=== PATIENT | male | born 1955 | race Caucasian/White ===

== ENCOUNTER → 2018-03-04 | Emergency (ER) | payer MEDICAID, SELFPAY ==
[~2018-03-04] MED LIST: Iopamidol 370 76% 100 ML VIAL ONE; Levofloxacin 500 mg/D5W 100 ml Premix Bag ONE; Morphine 4 MG/ML VIAL ONE; Pantoprazole 40 MG VIAL ONE; Sodium Chloride 0.9% 1,000 ML BAG ONE; Sodium Chloride 0.9% 100 ML BAG ONE; metroNIDAZOLE 500 MG/100 ML BAG ONE
[2018-03-04 12:48] LABS: #Basophils 0.2 thou/uL (0.0-0.2); #Eosinphils 0.2 thou/uL (0.0-0.7); #Lymphocytes 1.7 thou/uL (1.20-3.40); #Monocytes 1.2 thou/uL (0.11-0.59); %Basophils 1.3 % (0.0-1.0); %Eosinophils 1.9 % (0.0-10.0); %Monocytes 9.6 % (0.0-10.0); %Neutrophils 73.2 % (42.0-75.0); Hemoglobin 11.9 g/dL (14.0-18.0); Mean Corpuscular HGB CONC 32.3 g/dL (32.0-36.0); Mean Corpuscular Hemoglobin 25.6 pg (27.0-31.0); Mean Corpuscular Volume 79.5 fL (78.0-98.0); Mean Platelet Volume 6.8 fL (7.4-10.4); Platelet Count 445 thou/uL (130-400); RBC Distribution Width 12.6 % (11.5-14.5); Red Blood Cell (RBC) Count 4.63 mill/uL (4.70-6.10); White Blood Cell (WBC) Count 12.3 thou/uL (4.8-10.8)
[2018-03-04 13:03] LABS: ALT (SGPT) 8 U/L (8-55); AST (SGOT) 21 U/L (5-34); Albumin 3.7 g/dL (3.4-4.8); Alkaline Phosphatase 75 U/L (40-150); Anion Gap 15 mmol/L (10-20); BUN (Urea Nitrogen) 12 mg/dL (8.4-25.7); Bilirubin, Total 0.5 mg/dL (0.2-1.2); CK (CPK) 26 U/L (30-200); Calc. Creatinine Clearance 0 mL/min (70-130); Carbon Dioxide 24 mmol/L (23-31); Chloride 96 mmol/L (98-107); Estimated GFR-MDRD Greater than 90; Globulin 4.6 g/dL (2.4-3.5); Glucose 99 mg/dL (80-115); Lipase 9 U/L (8-78); Potassium 4.3 mmol/L (3.5-5.1); Protein, Total 8.3 g/dL (5.8-8.1); Sodium 131 mmol/L (136-145)
--- NOTE | 2018-03-04 13:15 | RAD ---
CHEST ONE VIEW: HISTORY: Cough. COMPARISON: 09/18/2017 FINDINGS: Hazy opacity in the lung base, likely due to pleural effusion. Limited evaluation of the left and ri ght hemidiaphragm. Normal cardiac silhouette. The pulmonary vessels are within normal limits. Adeq uate aeration of the upper lungs. No pneumothorax. IMPRESSION: Hazy opacity in the lung bases suggesting bilateral pleural effusion. POS: [facility]
--- NOTE | 2018-03-04 15:02 | CT ---
ABDOMEN CT WITH COTNRAST PELVIC CT WITH CONTRAST: COMPARISON: 01/30/2018. HISTORY: Esophageal cancer. Hepatitis C. Pulmonary disease. Periumbilical pain, x 2 weeks. Nausea and vomi ting. TECHNIQUE: An abdomen and pelvic CT are performed with IV contrast. Enteric contrast is not administered. Mary Grace nal reformatted images are submitted for interpretation. FINDINGS: CT ABDOMEN: There is evidence of a gastric pull-through. There is simple fluid in the right hemithorax, pleural in location. There is consolidation of the right lower lobe. Redemonstration of a well-loculated hy podense focus measuring 3.4 x 4.6 cm (previously measuring 4.2 x 4.8 cm). Adjacent lung parenchymal changes are redemonstrated. There is evidence of gallbladder wall enhancement and pericholecystic fluid. The possibility of chol ecystitis cannot be excluded. Hyperdense material in the lumen of the gallbladder may represent smal l stones. The visualized right hepatic lobe, spleen, pancreas, and adrenal glands are unremarkable. Symmetric enhancement of the kidneys. Hypodensity in the right renal cortex measuring 1.4 x 1.4 cm c ompatible with a slightly complex cyst. Bilaterally, no evidence of obstructive uropathy. There are bilateral nonobstructing intrarenal calculi. There are enlarged periportal, periaortic, aortocaval, and pericaval lymph nodes. [place] [employer] lym ph node measures 3.8 x 2.4 cm and is periportal in location. This lymph node has markedly increased in size when compared to the previous examination. Previously, this lymph node measured 3.1 x 1.3 cm . There is stranding of the abdominal mesentery with a small amount of fluid in the left and right p aracolic gutter. Fluid may be secondary to peritoneal dialysis. Peritoneal dialysis catheter is in the left hemiabdomen. Overall, there is no evidence of bowel obstruction. Ileocecal junction is normal. Normal-caliber ap pendix. Visualized colon is unremarkable. Evaluation of the alimentary canal is limited due to lack of oral contrast administration. CT PELVIS: No mass, lymphadenopathy, free air, or free fluid. IMPRESSION: 1. Redemonstration of loculated fluid in the right peripleural space. Significance is uncertain. I nfected fluid collection cannot be completely excluded. However, there does not appear to be air att enuation in this fluid collection. 2. Interval increase in size of retroperitoneal and periportal lymph nodes. Findings may be reactiv e given the acute increase. Short term, 1 month follow up is recommended. 3. There appears to be fluid in the gallbladder fossa with mild hyperemia of the gallbladder wall. Correlate for cholecystitis with gallbladder ultrasound. POS: [facility]
[2018-03-04 15:27] LABS: Bilirubin Negative (Negative); Blood, Urine Moderate (Negative); Glucose, Urine (Dipstick) Negative (Negative); Leukocyte Negative (Negative); Nitrite Negative (Negative); Protein, Urine (Dipstick) Negative (Neg-Trace); Urobilinogen 0.2 mg/dL (0.2-1.0)
[2018-03-04 15:30] LABS: Clarity Hazy (Clear); Specific Gravity, Urine 1.034 (1.002-1.036)
[2018-03-04 15:31] LABS: Bacteria/HPF Rare-Few HPF (None Seen); Squamous Epithelial 0-3 HPF (0-3)
[2018-03-04 15:32] LABS: Crystals/HPF RARE CA OXALATE HPF (Negative)
== END ==
LOC: MADERS 11:54
DX: R10.10 Upper abdominal pain, unspecified (principal); J45.909 Unspecified asthma, uncomplicated; F32.9 Major depressive disorder, single episode, unspecified; Z79.899 Other long term (current) drug therapy
CPT/HCPCS: 36415; 71045; 74177; 80053; 81003; 81015; 82550; 83605; 83690; 85025; 87086; 93005; 94760; 96361; 96365; 96375; 96376; C9113; J1956; J2270; J7050